=== PATIENT | female | born 1960 | race African-American/Black ===

== ENCOUNTER 2019-05-04 13:05 | Inpatient (IN) | payer OTHER, MEDICARE ==
[~2019-05-04] VITALS: Ht 185.4 cm; Wt 79.4 kg
[2019-05-04] MEDS ORDERED: IPRATROPIUM/ALBUTEROL 0.5-3(2.5)MG/3ML NEB HHN ONE ×3 (14:00→19:15)
[2019-05-04] MEDS ORDERED: METHYLPREDNISOLONE SOD SUCC 125 MG/2 ML VIAL IV ONE (14:00)
[2019-05-04] MEDS ORDERED: FUROSEMIDE 40MG/4ML VIAL IVP ONE (14:00)
[2019-05-04 14:38] LABS: BASOPHILS % 0.7 % (0.0-2.0); CHLORIDE 106 mEq/L (98-107); EOSINOPHILS % 1.2 % (0.0-5.0); HEMATOCRIT. 36.6 % (36.0-48.0); HEMOGLOBIN. 12.1 g/dL (12.0-16.0); LYMPHOCYTES % 9.8 % (20.0-50.0); MEAN CORPUSCULAR HEMOGLOBIN 29.2 pg (28.0-32.0); MEAN CORPUSCULAR VOLUME 88.2 fL (81.0-99.0); MONOCYTES % 8.5 % (2.0-8.0); NEUTROPHILS % 79.8 % (40.0-76.0); PLATELET 86 x1000/uL (130-400); RED BLOOD CELL COUNT 4.15 mill/uL (4.2-5.4); RED CELL DISTRIBUTION WIDTH 15.2 % (11.6-14.6)
[2019-05-04] MEDS ORDERED: ALBUTEROL (0.083%) 2.5MG/3ML NEB HHN STA (16:33)
[2019-05-04] MEDS ORDERED: DIPHENHYDRAMINE 50MG/ML VIAL IV PRN (19:30)
[2019-05-04] MEDS ORDERED: MAGNESIUM/ALUMINUM HYDROXIDE/SIMETHICONE 30ML UDC PO PRN (19:30)
[2019-05-04] MEDS ORDERED: DOCUSATE SODIUM 100MG CAPSULE PO PRN (19:30)
[2019-05-04] MEDS ORDERED: LORAZEPAM 2MG/ML CPJ IV PRN (19:30)
[2019-05-04] MEDS ORDERED: GUAIFENESIN 200MG/10ML SUGAR FREE UDC PO PRN (19:30)
[2019-05-04] MEDS ORDERED: CLONIDINE 0.1MG TABLET PO PRN (19:30)
[2019-05-04] MEDS ORDERED: HYDROCODONE/ACETAMINOPHEN 5/325MG TABLET PO PRN (19:30)
[2019-05-04] MEDS ORDERED: MORPHINE SULFATE 2 MG/ML CPJ (NOT FOR IM USE) IV PRN (19:30)
[2019-05-04] MEDS ORDERED: ACETAMINOPHEN 325MG TABLET PO PRN (19:30)
[2019-05-04] MEDS ORDERED: ONDANSETRON HCL 4MG/2ML INJ IV PRN (19:30)
[2019-05-04] MEDS ORDERED: NA PHOS,M-B/NA PHOS,DI-BA ENEMA 118ML PR PRN (19:30)
[2019-05-04 22:07] LABS: CHLORIDE 103 mEq/L (98-107)
[2019-05-04 23:05] VITALS: BP 129/83
[2019-05-05] VITALS: BP 129/83
[2019-05-05] MEDS: METHYLPREDNISOLONE SOD SUCC 125 MG/2 ML VIAL IV SCH ×4 (00:36→17:56)
[2019-05-05] MEDS: IPRATROPIUM/ALBUTEROL 0.5-3(2.5)MG/3ML NEB INH PRN ×3 (00:39→20:19)
[2019-05-05] MEDS ORDERED: LEVOFLOXACIN 500MG PREMIX 100 ML IV SCH (01:00)
[2019-05-05 04:00] VITALS: BP 118/81
[2019-05-05 06:30] LABS: HEMATOCRIT. 38.3 % (36.0-48.0); HEMOGLOBIN. 12.7 g/dL (12.0-16.0); MEAN CORPUSCULAR HEMOGLOBIN 29.2 pg (28.0-32.0); MEAN CORPUSCULAR VOLUME 88.5 fL (81.0-99.0); MEAN PLATELET VOLUME 10.8 fl (7.4-10.4); PLATELET 97 x1000/uL (130-400); RED BLOOD CELL COUNT 4.33 mill/uL (4.2-5.4); RED CELL DISTRIBUTION WIDTH 15.1 % (11.6-14.6)
[2019-05-05 06:54] LABS: CHLORIDE 102 mEq/L (98-107)
[2019-05-05 07:04] LABS: LDL CHOLESTEROL 73 mg/dL (5-100); T4 FREE 1.14 ng/dL (0.76-1.46)
[2019-05-05 07:07] LABS: HDL CHOLESTEROL 75 mg/dL (40-59)
[2019-05-05 08:00] VITALS: BP 136/70
[2019-05-05] MEDS: ENOXAPARIN 40MG/0.4ML SYR SUBCUT SCH (09:00)
[2019-05-05] MEDS: ASPIRIN 81MG EC TABLET PO SCH (09:05)
[2019-05-05 12:50] LABS: PLATELET ESTIMATE DECREASED
[2019-05-05] MEDS ORDERED: ALBU90AE INH (14:32)
[2019-05-05] MEDS ORDERED: LIDO700A30 TP (14:32)
[2019-05-05] MEDS ORDERED: ASPI-1158 MT (14:32)
[2019-05-05] MEDS ORDERED: CARV12.545 MT (14:32)
[2019-05-05] MEDS ORDERED: GABA-531 MT (14:32)
[2019-05-05] MEDS ORDERED: BUME0.5T6 MT (14:32)
[2019-05-05] MEDS ORDERED: ATOR-2 MT (14:32)
[2019-05-05] MEDS ORDERED: LISI-186 MT (14:32)
[2019-05-05] MEDS ORDERED: TRAM50TA3 MT (14:32)
[2019-05-05] MEDS ORDERED: LORA-250 PO (14:32)
[2019-05-05] MEDS ORDERED: XALAO EACHEYE (14:32)
[2019-05-05] MEDS ORDERED: [UNRECOGNIZED DRUG - CODE] PO (14:33)
[2019-05-05 20:00] VITALS: BP 102/57
[2019-05-06] VITALS: BP 111/63
[2019-05-06] MEDS: METHYLPREDNISOLONE SOD SUCC 125 MG/2 ML VIAL IV SCH ×2 (00:44→05:26)
[2019-05-06] MEDS ORDERED: LEVOFLOXACIN 500MG PREMIX 100 ML IV SCH (02:00)
[2019-05-06 04:00] VITALS: BP 102/60
[2019-05-06] MEDS: IPRATROPIUM/ALBUTEROL 0.5-3(2.5)MG/3ML NEB INH PRN ×2 (04:44→11:08)
[2019-05-06 08:00] VITALS: BP 122/83
[2019-05-06] MEDS: ENOXAPARIN 40MG/0.4ML SYR SUBCUT SCH (09:00)
[2019-05-06] MEDS: ASPIRIN 81MG EC TABLET PO SCH (09:00)
[2019-05-06 09:32] VITALS: BP 122/83
== END 2019-05-06 12:09 | disposition home or self-care (01) | DRG 189 ==
LOC: ER 13:05 → 8WST 18:54 → ENRESERV 21:09
PROVIDERS: ADMIT Internal Medicine; ATTEND Internal Medicine
DX: J96.00 Acute respiratory failure, unspecified whether with hypoxia or hypercapnia (principal); J44.1 Chronic obstructive pulmonary disease with (acute) exacerbation; R65.10 Systemic inflammatory response syndrome (SIRS) of non-infectious origin without acute organ dysfunction; I50.9 Heart failure, unspecified; F17.200 Nicotine dependence, unspecified, uncomplicated; I11.0 Hypertensive heart disease with heart failure; F17.210 Nicotine dependence, cigarettes, uncomplicated; I25.10 Atherosclerotic heart disease of native coronary artery without angina pectoris; Z79.899 Other long term (current) drug therapy; Z88.0 Allergy status to penicillin; Z90.10 Acquired absence of unspecified breast and nipple
CPT/HCPCS: 36415; 71045; 80048; 80061; 83880; 84439; 84443; 84484; 93005; 94640; 96374; 96375; 99285; J1650; J1940; J1956; J2930; J7050; J7620